=== PATIENT | male | born 2000 | race Caucasian/White ===

== ENCOUNTER 2022-03-26 20:55 | Emergency (ER) | payer OTHER ==
[~2022-03-26] VITALS: Ht 162.6 cm; Wt 65.9 kg
[2022-03-26 22:39] VITALS: BP 114/12
[2022-03-26] MEDS ORDERED: ACETAMINOPHEN/CODEINE 300-30 MG TABLET PO ONE (22:45)
[2022-03-26] MEDS ORDERED: ACET-2080 PO (22:45)
[2022-03-26] MEDS ORDERED: IBUPROFEN 600 MG TABLET PO ONE (22:45)
[2022-03-26] MEDS ORDERED: IBUP-1554 PO (22:45)
== END 2022-03-26 23:07 | disposition home or self-care (01) ==
LOC: EMS 20:58
DX: S93.401A Sprain of unspecified ligament of right ankle, initial encounter (principal); X50.1XXA Overexertion from prolonged static or awkward postures, initial encounter; Y93.89 Activity, other specified; Y92.89 Other specified places as the place of occurrence of the external cause; Y99.0 Civilian activity done for income or pay
CPT/HCPCS: 99283